=== PATIENT | female | born 1975 | race Caucasian/White ===

== ENCOUNTER → 2017-02-01 | Outpatient (CLI) | payer OTHER ==
[~2017-02-01] MED LIST: IBUP-1050 PO; PRENTAB26 PO; PRLSRUNK PO; TYLUNK PO
--- NOTE | 2017-02-01 16:16 | MAMMOGRAPHY REPORT ---
BILATERAL DIGITAL SCREENING MAMMOGRAM TOMOSYNTHESIS WITH CAD: 02/01/2017 CLINICAL HISTORY: Routine screening. Baseline exam. TECHNIQUE: Breast tomosynthesis in addition to standard 2D mammography was performed. Current study was also evaluated with a Computer Aided Detection (CAD) system. COMPARISON: No prior exams were available for comparison. BREAST COMPOSITION: The tissue of both breasts is heterogeneously dense, which may obscure small mas ses. FINDINGS: There is a lobulated 7 mm mass seen within the left 3:00 breast, for which ultrasound and possible additional spot compression views are recommended for further evaluation. The remainder of both breasts are negative, without suspicious masses, calcifications, or areas of ar chitectural distortion noted. IMPRESSION: ACR BI-RADS CATEGORY 0: INCOMPLETE EVALUATION: NEED ADDITIONAL IMAGING EVALUATION Left breast mass, for which additional imaging evaluation is recommended. The patient will be called to schedule an appointment. Approximately 10% of breast cancers are not detected with mammography. A negative mammographic report should not delay biopsy if a clinically suggestive mass is present. Alexa Bedoya M.D. ah/:02/01/2017 14:45:54 Case Maker: Cyndie STOVER(Molina)(Olivia), [facility] letter sent: Addl Imaging 0 BI-RADS Code: ACR BI-RADS Category 0: Incomplete Evaluation: Need Additional Imaging Evaluation
== END | disposition home or self-care (01) ==
LOC: C.MAMM 13:09
PROVIDERS: ATTEND Obstetrics & Gynecology
DX: Z12.31 Encounter for screening mammogram for malignant neoplasm of breast (principal); N63 Unspecified lump in breast

== ENCOUNTER → 2017-02-07 | Outpatient (CLI) | payer OTHER ==
--- NOTE | 2017-02-07 14:43 | MAMMOGRAPHY REPORT ---
ULTRASOUND OF LEFT BREAST: 02/07/2017 CLINICAL HISTORY: Callback from screening mammogram for left breast mass. The patient reports her mo ther was diagnosed with breast cancer in her 60s. COMPARISON: Comparison is made to exam dated: 02/01/2017 mammogram - . TECHNIQUE: Real-time targeted ultrasound of the left breast was performed. FINDINGS: Real-time, high resolution targeted ultrasound was performed of the area of the circumscribed 7 mm ma ss seen within the left 3:00 breast on the recent screening mammogram. In the left breast at 3:00 pe riareolar region, there is an oval circumscribed anechoic mass with multiple thin internal septations , measuring 8 x 6 x 4 mm, consistent with a benign cyst cluster. This corresponds with the mammograp hic mass. Other incidental cysts were noted during the exam, including 2 adjacent anechoic benign cy sts measuring 4 and 3 mm in the left 3:00 periareolar region. Additionally, an anechoic circumscribe d mass with thin internal septations is seen within the left 12:00 subareolar breast measuring 8 x 4 x 7 mm, also consistent with a benign cyst cluster. No suspicious solid masses were evident. IMPRESSION: ACR BI-RADS CATEGORY 2: BENIGN Benign 8 mm cyst cluster in the left breast at 3:00 on ultrasound, which corresponds with the mammogr aphic mass. Other small benign cysts were seen during the ultrasound exam. There is no sonographic evidence of malignancy. A 1 year screening mammogram is recommended. The patient was verbally notified of the results. Alexa Bedoya M.D. ah/:02/07/2017 10:03:00 Loan Examiner: Alexa Bedoya MD, letter sent: Normal 1/2 BI-RADS Code: ACR BI-RADS Category 2: Benign
== END | disposition home or self-care (01) ==
LOC: C.MAMM 09:32
PROVIDERS: ATTEND Obstetrics & Gynecology
DX: N63 Unspecified lump in breast (principal)

== ENCOUNTER → 2017-05-09 | Outpatient (CLI) | payer OTHER | END | disposition home or self-care (01) | LOC: C.PAPS 08:33 | PROVIDERS: ATTEND Obstetrics & Gynecology | DX: Z12.4 Encounter for screening for malignant neoplasm of cervix (principal); Z11.51 Encounter for screening for human papillomavirus (HPV) ==